=== PATIENT | female | born 1975 | race African-American/Black ===

== ENCOUNTER 2021-08-15 10:17 | Emergency (ER) | payer OTHER ==
[~2021-08-15] VITALS: Ht 167.6 cm; Wt 72.6 kg
[~2021-08-15 10:17] MED LIST: AMOXICILLIN 50500 M1 PO; AMOXICILLIN 50500 MG PO; IBUPROFEN 800800 MG PO; NORCO 5-325 TA1 EACH PO; TRAMADOL 50 MG50 MG PO
[2021-08-15 10:22] VITALS: BP 144/67
== END 2021-08-15 11:42 | disposition home or self-care (01) ==
LOC: ER 10:17
DX: U07.1 COVID-19 (principal); Z98.51 Tubal ligation status; Z87.891 Personal history of nicotine dependence